=== PATIENT | female | born 1985 | race African-American/Black ===

== ENCOUNTER 2016-12-10 11:30 | Emergency (ER) | payer BC, OTHER ==
[~2016-12-10] VITALS: Ht 149.9 cm; Wt 95.7 kg
[~2016-12-10 11:30] MED LIST: ACET-704 PO; AMOX875T PO; BENZ100C PO; LIDO20SO PO
[2016-12-10 11:50] VITALS: BP 108/62
[2016-12-10] MEDS ORDERED: IV NORMAL SALINE 1000ML BAG 1,000 ML IV SCH (12:02)
[2016-12-10] MEDS ORDERED: KETOROLAC TROMETHAMINE 30 MG/ML SYRINGE. IV ONE (12:15)
[2016-12-10] MEDS ORDERED: ONDANSETRON PF 4 MG/2 ML VIAL. IV ONE (12:15)
--- NOTE | 2016-12-10 12:16 | PHYS DOC ---
Past Medical History Past Medical History: Asthma, Migraines, Other Additional Past Medical Histor: chronic back pain,'polycystic liver disease' Past Surgical History: Appendectomy, Tubal ligation, Other Additional Past Surgical Histo: CERVIX Alcohol Use: None Drug Use: None Adult General Chief Complaint Chief Complaint: FLANK PAIN HPI HPI Patient is a 31 year old female who presents with left flank pain for 4 days. The pain radiates to the left lower quadrant. She reports nausea without vomiting and loose stools. She has urinary frequency and urgency without dysuria or hematuria. She reports subjective fever. She denies history of kidney stones. Her PCP is Dr. Chance. Review of Systems Review of Systems Constitutional: Reports subjective fever. Eyes: Denies change in visual acuity, redness, or eye pain. [] HENT: Denies ear pain, nasal congestion or sore throat. [] Respiratory: Denies cough or shortness of breath. [] Cardiovascular: Denies chest pain, palpitations or edema. [] GI: Denies vomiting, bloody stools or diarrhea. Reports nausea and pain radiating to the left lower quadrant. : Denies dysuria, hematuria. Reports left flank pain, urinary frequency, and urinary urgency. Musculoskeletal: Denies back pain or joint pain. [] Integument: Denies rash or skin lesions. [] Neurologic: Denies headache, focal weakness or sensory changes. [] Endocrine: Denies polyuria or polydipsia. [] Psych: Denies anxiety or depression. [] All systems reviewed and negative unless otherwise stated in the HPI. Current Medications Current Medications Current Medications Medications (Trade) Dose Ordered Sig/Rich Start Time Stop Time Status Last Admin Dose Admin Ketorolac Tromethamine (Toradol) 30 mg 1X ONCE 12/10/16 12:15 12/10/16 12:16 DC 12/10/16 12:48 30 MG Ondansetron HCl (Zofran) 4 mg 1X ONCE 12/10/16 12:15 12/10/16 12:16 DC 12/10/16 12:48 4 MG Sodium Chloride (Iv Sodium Chloride 0.9% 1000ml Bag) 1,000 ml @ 1,000 mls/hr Q1H 12/10/16 12:02 12/10/16 13:01 DC 12/10/16 12:47 1,000 MLS/HR Allergies Allergies Allergies Coded Allergies Type Severity Reaction Last Updated Verified nitrofurantoin Allergy Intermediate Rash 01/07/15 Yes prednisone Allergy Intermediate Rash 01/07/15 Yes Physical Exam Physical Exam Constitutional: Well developed, well nourished, no acute distress, non-toxic appearance. [] HENT: Normocephalic, atraumatic, oropharynx moist. [] Eyes: PERRLA, EOMI, conjunctiva normal, no discharge. [] Neck: Normal range of motion, no tenderness, supple, no stridor. [] Cardiovascular: Heart rate regular rhythm, no murmur. [] Lungs & Thorax: Bilateral breath sounds clear to auscultation without wheezes, rales, or rhonchi. [] Abdomen: Bowel sounds normal, soft, no tenderness, no masses, no pulsatile masses. [] Skin: Warm, dry, no erythema, no rash. [] Back: No midline tenderness, no CVA tenderness. [] Extremities: No tenderness, ROM intact, no edema. Distal pulses equal bilaterally. [] Neurologic: Alert and oriented X 3, normal motor function, normal sensory function, no focal deficits noted. [] Psychologic: Affect normal, judgement normal, mood normal. [] Current Patient Data Vital Signs Vital Signs Date Time Temp Pulse Resp B/P Pulse Ox O2 Delivery O2 Flow Rate FiO2 12/10/16 11:50 98.4 71 16 108/62 100 Room Air 98.4 Lab Values Laboratory Tests Test 12/10/16 11:50 12/10/16 12:40 Urine Collection Type Unknown Urine Color Yellow Urine Clarity Clear Urine pH 7.5 Urine Specific [place] 1.020 Urine Protein Negativemg/dL (NEG-TRACE) Urine Glucose (UA) Negativemg/dL (NEG) Urine Ketones (Stick) Negativemg/dL (NEG) Urine Blood Small (NEG) Urine Nitrite Negative (NEG) Urine Bilirubin Negative (NEG) Urine Urobilinogen Dipstick 0.2mg/dL (0.2 mg/dL) Urine Leukocyte Esterase Negative (NEG) Urine RBC 3-5/HPF (0-2) Urine WBC 0/HPF (0-4) Urine Squamous Epithelial Cells Many/LPF Urine Bacteria Few/HPF (0-FEW) Urine Mucus Marked/LPF Urine Test Negative (NEG) White Blood Count 10.4x10^3/uL (4.0-11.0) Red Blood Count 4.63x10^6/uL (3.50-5.40) Hemoglobin 13.6g/dL (12.0-15.5) Hematocrit 40.7% (36.0-47.0) Mean Corpuscular Volume 88fL (79-100) Mean Corpuscular Hemoglobin 30pg (25-35) Mean Corpuscular Hemoglobin Concent 34g/dL (31-37) Red Cell Distribution Width 13.6% (11.5-14.5) Platelet Count 232x10^3/uL (140-400) Neutrophils (%) (Auto) 57% (31-73) Lymphocytes (%) (Auto) 33% (24-48) Monocytes (%) (Auto) 6% (0-9) Eosinophils (%) (Auto) 3% (0-3) Basophils (%) (Auto) 1% (0-3) Neutrophils # (Auto) 5.9x10^3uL (1.8-7.7) Lymphocytes # (Auto) 3.4x10^3/uL (1.0-4.8) Monocytes # (Auto) 0.6x10^3/uL (0.0-1.1) Eosinophils # (Auto) 0.3x10^3/uL (0.0-0.7) Basophils # (Auto) 0.1x10^3/uL (0.0-0.2) Sodium Level 140mmol/L (136-145) Potassium Level 3.9mmol/L (3.5-5.1) Chloride Level 105mmol/L (98-107) Carbon Dioxide Level 26mmol/L (21-32) Anion Gap 9 (6-14) Blood Urea Nitrogen 11mg/dL (7-20) Creatinine 0.8mg/dL (0.6-1.0) Estimated GFR (Cockcroft-Gault) 100.6 BUN/Creatinine Ratio 14 (6-20) Glucose Level 89mg/dL (70-99) Calcium Level 9.2mg/dL (8.5-10.1) Total Bilirubin 0.3mg/dL (0.2-1.0) Aspartate Amino Transferase (AST) 21U/L (15-37) Alanine Aminotransferase (ALT) 27U/L (14-59) Alkaline Phosphatase 59U/L (46-116) Total Protein 7.4g/dL (6.4-8.2) Albumin 3.3g/dL (3.4-5.0) L Albumin/Globulin Ratio 0.8 (1.0-1.7) L Laboratory Tests 12/10/16 12:40 Laboratory Tests 12/10/16 12:40 EKG EKG [] Radiology/Procedures Radiology/Procedures REASON: left flank pain PROCEDURE: ABDOMEN PELVIS WO CONTRAST Indication: Severe bilateral flank pain, greater on the left, symptoms for a few days. Findings: The lung bases are clear. Calcified granuloma is noted on the right. There is no pleural effusion. The heart is not enlarged. Solid organ evaluation is limited without IV contrast. Multiple low-density lesions within the liver are redemonstrated and similar to prior. Gallbladder is unremarkable. Spleen is not enlarged. Pancreas and adrenals are unremarkable. There is no obstructing or nonobstructing renal calculus. Lack of IV or oral contrast limits evaluation of bowel. Aorta is normal caliber. There is no small bowel obstruction or mural thickening. Colon is grossly unremarkable. Appendix appears to be surgically absent, postsurgical changes noted at the base of the cecum. Tubal ligation clips are noted. Calcified phleboliths are present. Bladder is decompressed. Bony structures are intact. Impression: 1. No acute abdominal findings. No obstructing or nonobstructing renal calculus. 2. Multiple low-density lesions again noted throughout the liver. These most likely represent cysts and are relatively unchanged. Course & Med Decision Making Course & Med Decision Making Pertinent Labs and Imaging studies reviewed. (See chart for details) Patient presents with left flank pain and urinary symptoms for 4 days. On exam, she does not have any tenderness over the CVA, flank, or abdomen. Urine is negative for infection or blood. There are no significant laboratory abnormalities. CT of the abdomen and pelvis does not show any stones or other acute abnormality. Her pain may be musculoskeletal in nature. She is discharged home with prescription for [place] and Robaxin. She is instructed to follow-up with her PCP if her pain continues. Return precautions were discussed. She verbalizes understanding and agrees with plan. Dragon Disclaimer Dragon Disclaimer This electronic medical record was generated, in whole or in part, using a voice recognition dictation system. Departure Departure Impression: Primary Impression: Flank pain Disposition: 01 HOME, SELF-CARE Condition: IMPROVED Referrals: NO PCP (PCP) Patient Instructions: Flank Pain, [id number] Additional Instructions: Your labs, urine, and CT scan did not show any concerning findings today. Please take the prescribed medications as directed. Do not drive or operate heavy machinery while taking these medications. Please follow-up with a primary care doctor within the next week. Return to the emergency department if you have any new or concerning symptoms. Scripts Methocarbamol (Robaxin)500 Mg [id number] Mg PO QID #20 TAB Prov:CINTHYA VARGAS 12/10/16 Hydrocodone/Apap 5-325 (Aiken 5-325 Tablet)1 Each Tablet1 Tab PO PRN Q6HRS PRN PAIN #20 TAB Prov:CINTHYA VARGAS 12/10/16 CINTHYA VARGAS Dec 10, 2016 12:16
[2016-12-10 13:00] LABS: BASO # 0.1 x10^3/uL (0.0-0.2); BASO % 1 % (0-3); EOS % 3 % (0-3); HEMATOCRIT 40.7 % (36.0-47.0); HEMOGLOBIN 13.6 g/dL (12.0-15.5); LYMPH # 3.4 x10^3/uL (1.0-4.8); LYMPH % 33 % (24-48); MEAN CORPUSCULAR HEMOGLOBIN 30 pg (25-35); MEAN CORPUSCULAR HGB CONC 34 g/dL (31-37); MEAN CORPUSCULAR VOLUME 88 fL (79-100); MONO % 6 % (0-9); NEUT % 57 % (31-73); PLATELET COUNT 232 x10^3/uL (140-400); RED BLOOD COUNT 4.63 x10^6/uL (3.50-5.40); RED CELL DISTRIBUTION WIDTH 13.6 % (11.5-14.5); WHITE BLOOD COUNT 10.4 x10^3/uL (4.0-11.0)
[2016-12-10 13:08] LABS: CALCIUM 9.2 mg/dL (8.5-10.1); CREATININE 0.8 mg/dL (0.6-1.0); GFR 100.6; POTASSIUM 3.9 mmol/L (3.5-5.1)
[2016-12-10 13:09] LABS: NEG OBC UR NEG; POS OBC UR POS
[2016-12-10 13:14] LABS: ALBUMIN 3.3 g/dL (3.4-5.0); ALBUMIN/GLOBULIN RATIO 0.8 (1.0-1.7); TOTAL BILIRUBIN 0.3 mg/dL (0.2-1.0); TOTAL PROTEIN 7.4 g/dL (6.4-8.2)
[2016-12-10 13:23] LABS: BILIRUBIN,URINE NEGATIVE (NEG); GLUCOSE,URINE NEGATIVE (NEG); NITRITE,URINE NEGATIVE (NEG); PH,URINE 7.5; PROTEIN,URINE NEGATIVE (NEG-TRACE); UROBILINOGEN,URINE 0.2 mg/dL (0.2 mg/dL)
[2016-12-10 13:24] LABS: BACTERIA,URINE FEW /HPF (0-FEW); SQUAMOUS EPITHELIAL CELL,UR MANY /LPF; WBC,URINE 0 /HPF (0-4)
--- NOTE | 2016-12-10 13:53 | RAD ---
Indication: Severe bilateral flank pain, greater on the left, symptoms for a few days. Technique: Axial images and coronal and sagittal reformatted images are provided. Comparison is from May 23, 2013. One or more of the following individualized dose reduction techniques were utilized for this examination: 1. Automated exposure control 2. Adjustment of the mA and/or kV according to patient size 3. Use of iterative reconstruction technique Findings: The lung bases are clear. Calcified granuloma is noted on the right. There is no pleural effusion. The heart is not enlarged. Solid organ evaluation is limited without IV contrast. Multiple low-density lesions within the liver are redemonstrated and similar to prior. Gallbladder is unremarkable. Spleen is not enlarged. Pancreas and adrenals are unremarkable. There is no obstructing or nonobstructing renal calculus. Lack of IV or oral contrast limits evaluation of bowel. Aorta is normal caliber. There is no small bowel obstruction or mural thickening. Colon is grossly unremarkable. Appendix appears to be surgically absent, postsurgical changes noted at the base of the cecum. Tubal ligation clips are noted. Calcified phleboliths are present. Bladder is decompressed. Bony structures are intact. Impression: 1. No acute abdominal findings. No obstructing or nonobstructing renal calculus. 2. Multiple low-density lesions again noted throughout the liver. These most likely represent cysts and are relatively unchanged.
[2016-12-10] MEDS ORDERED: HYDR-971 PO (14:18)
[2016-12-10] MEDS ORDERED: METH-37 PO (14:18)
== END 2016-12-10 14:37 | disposition home or self-care (01) ==
LOC: ER 11:30
DX: R10.9 Unspecified abdominal pain (principal); R50.9 Fever, unspecified; R35.0 Frequency of micturition; R39.15 Urgency of urination; J45.909 Unspecified asthma, uncomplicated; G43.909 Migraine, unspecified, not intractable, without status migrainosus; G89.29 Other chronic pain; Z90.49 Acquired absence of other specified parts of digestive tract; Z98.51 Tubal ligation status; Z88.8 Allergy status to other drugs, medicaments and biological substances
CPT/HCPCS: 36415; 74176; 80053; 81001; 81025; 85027; 96361; 96374; 96375; 99285; J1885; J2405; J7030

== ENCOUNTER 2017-05-07 16:07 | Emergency (ER) | payer BC, MEDICAID ==
[~2017-05-07] VITALS: Ht 149.9 cm; Wt 99.8 kg
[~2017-05-07 16:07] MED LIST changes: +HYDR-971 PO; +METH-37 PO
[2017-05-07 16:40] VITALS: BP 127/73
--- NOTE | 2017-05-07 16:52 | PHYS DOC ---
Past Medical History Past Medical History: Asthma, Migraines, Other Additional Past Medical Histor: chronic back pain,'polycystic liver disease' Past Surgical History: Appendectomy, Tubal ligation, Other Additional Past Surgical Histo: CERVIX Alcohol Use: None Drug Use: None Adult General Chief Complaint Chief Complaint: FOOT INJURY PAIN HPI HPI Patient is a 32 year old female with no significant medical history who presents with pain moderate in nature on the ball of her right foot that began today. Patient states the pain is worse on weight-bearing. Patient denies any history of gout. Denies any chance she is . Denies any injuries. Review of Systems Review of Systems Constitutional: Denies fever or chills [] Musculoskeletal: Right ball of the foot pain Integument: Denies rash or skin lesions [] Neurologic: Denies headache, focal weakness or sensory changes [] Allergies Allergies Allergies Coded Allergies Type Severity Reaction Last Updated Verified nitrofurantoin Allergy Intermediate Rash 01/07/15 Yes prednisone Allergy Intermediate Rash 01/07/15 Yes Physical Exam Physical Exam Constitutional: Well developed, well nourished, no acute distress, non-toxic appearance. [] Skin: Warm, dry, no erythema, no rash. [] Back: No tenderness, no CVA tenderness. [] Extremities: Right foot with no obvious deformity. Tenderness on palpation of the ball of the foot. No tenderness of the base of the fifth metatarsal or the navicular bone of the foot. +2 right pedal pulse. Cap refill less than 2 seconds the right toes. Sensation intact to the right foot. Neurologic: Alert and oriented X 3, normal motor function, normal sensory function, no focal deficits noted. [] Psychologic: Affect normal, judgement normal, mood normal. [] EKG EKG [] Radiology/Procedures Radiology/Procedures [] Course & Med Decision Making Course & Med Decision Making Pertinent Labs and Imaging studies reviewed. (See chart for details) Patient is in the ED with pain on the right foot specifically the ball of the foot that began today. No history of gout, no history of arthritis, no injuries. Right foot xrays interpreted by Dr. Hemphill were negative for any acute findings. D/c with Diclofenac and Voltaren cream. F/u with PCP or Ortho in one week. Ice and elevation encouraged. Dragon Disclaimer Dragon Disclaimer This electronic medical record was generated, in whole or in part, using a voice recognition dictation system. Departure Departure Impression: Primary Impression: Right foot pain Disposition: HOME, SELF-CARE Condition: STABLE Referrals: AMADOR PENALOZA MD (PCP) RAFITA RUGGIERO II, MD Follow-up in one week Patient Instructions: Musculoskeletal Pain Additional Instructions: You were seen for right foot pain. We had a recommend you follow-up with the orthopedic doctor provided or your own primary care doctor in one week if pain continues. Ice and elevate the extremity. Use the prescribed medicine as written Scripts Cyclobenzaprine Hcl (CYCLOBENZAPRINE HCL) 10 Mg Tablet 1 TAB PO TID, #30 TAB Prov: ED RIVERA APRN 05/07/17 Diclofenac Sodium (VOLTAREN) 100 Gm Gel..gram. 1 GM TP QID, #100 GM 2 Refills Prov: ED RIVERA APRN 05/07/17 Diclofenac Sodium (DICLOFENAC SODIUM) 50 Mg Tablet.dr 1 TAB PO BID, #60 TAB 1 Refill Prov: ED RIVERA APRN 05/07/17 ED RIVERA APRN May 07, 2017 16:52
[2017-05-07] MEDS ORDERED: DICL50TA4 PO (16:55)
[2017-05-07] MEDS ORDERED: CYCL10TA2 PO (16:55)
[2017-05-07] MEDS ORDERED: DICL100G18 TP (16:55)
--- NOTE | 2017-05-07 17:12 | RAD ---
Exam: Right foot radiograph 05/07/2017 Indication: Plantar surface and first MTP joint pain Comparison: None available Technique: 3 views of the right foot are provided. Findings: There is no acute fracture or dislocation. No joint space narrowing. No soft tissue swelling. No osseous erosion or soft tissue gas. Bone mineralization is within normal limits. Impression: No acute fracture or dislocation. Specifically, no significant abnormality along the plantar aspect of the foot and at the first metatarsophalangeal joint.
== END 2017-05-07 17:14 | disposition home or self-care (01) ==
LOC: ER 16:07
DX: M79.671 Pain in right foot (principal); G89.29 Other chronic pain; J45.909 Unspecified asthma, uncomplicated; G43.909 Migraine, unspecified, not intractable, without status migrainosus; Z98.51 Tubal ligation status; Z90.49 Acquired absence of other specified parts of digestive tract; Z88.8 Allergy status to other drugs, medicaments and biological substances
CPT/HCPCS: 73630; 99284

== ENCOUNTER → 2018-11-28 | Outpatient (CLI) | payer OTHER ==
[~2018-11-28] MED LIST changes: +CYCL10TA2 PO; +DICL100G18 TP; +DICL50TA4 PO; +HYDR-3164 PO; -HYDR-971 PO
[2018-11-28 12:13] LABS: BASO # 0.1 x10^3/uL (0.0-0.2); BASO % 1 % (0-3); EOS # 0.4 x10^3/uL (0.0-0.7); EOS % 5 % (0-3); HEMATOCRIT 40.1 % (36.0-47.0); HEMOGLOBIN 13.4 g/dL (12.0-15.5); LYMPH # 2.9 x10^3/uL (1.0-4.8); LYMPH % 32 % (24-48); MEAN CORPUSCULAR HEMOGLOBIN 29 pg (25-35); MEAN CORPUSCULAR HGB CONC 34 g/dL (31-37); MEAN CORPUSCULAR VOLUME 87 fL (79-100); MONO # 0.5 x10^3/uL (0.0-1.1); MONO % 5 % (0-9); NEUT # 5.2 x10^3uL (1.8-7.7); NEUT % 57 % (31-73); PLATELET COUNT 287 x10^3/uL (140-400); RED CELL DISTRIBUTION WIDTH 13.8 % (11.5-14.5); WHITE BLOOD COUNT 9.1 x10^3/uL (4.0-11.0)
[2018-11-28 12:35] LABS: ALBUMIN 3.2 g/dL (3.4-5.0); ALBUMIN/GLOBULIN RATIO 0.7 (1.0-1.7); CALCIUM 8.9 mg/dL (8.5-10.1); CREATININE 0.8 mg/dL (0.6-1.0); GFR 99.4; POTASSIUM 4.1 mmol/L (3.5-5.1); TOTAL BILIRUBIN 0.2 mg/dL (0.2-1.0); TOTAL PROTEIN 7.7 g/dL (6.4-8.2)
== END | disposition home or self-care (01) ==
LOC: LAB 11:36
PROVIDERS: ATTEND Psychiatry & Neurology Neurology
DX: G43.009 Migraine without aura, not intractable, without status migrainosus (principal); R25.1 Tremor, unspecified
CPT/HCPCS: 36415; 80053; 84443; 85025; 85651

== ENCOUNTER → 2020-01-09 | Outpatient (CLI) | payer OTHER ==
[~2020-01-09] MED LIST changes: +GADOTERATE 7.5 MMOL/15ML VIAL. IVP ONE
--- NOTE | 2020-01-09 12:09 | KCIC ---
MRI Brain with and without contrast History:Pseudotumor cerebri, migraine headaches since 2006 getting worse in frequency and intensity Technique: Multiplanar, multi sequential pre and postcontrast MR imaging was performed of the brain. Comparison: None Findings: There is some motion degradation even for repeated images. There is no evidence of recent infarct or cytotoxic edema. The ventricles, sulci, and cisterns are within normal limits in size and configuration. There is no significant midline shift, intraaxial mass effect, or focal abnormal extra-axial fluid collection. There is no significant signal abnormality including hemosiderin deposition of the brain parenchyma. There is no nodular parenchymal enhancement. There is preservation of the major intracranial flow-voids at the skull base. There are very slightly low lying cerebellar tonsils projecting up to about 0.3 to 0.4 cm inferior to foramen magnum on the right pituitary gland is within normal limits. There is focus of asymmetric enhancement along the right aspect of the infundibulum estimated about 2.6 cm AP by 0.5 cm transverse by 0.5 cm cc. On precontrast images, there is suggestion of some faint T1 shortening. Paranasal sinuses are overall aerated. The mastoid air cells are aerated. There is preserved marrow signal of the clivus. There is nonspecific mild prominence of adenoids. Impression: 1. There is focus of asymmetric enhancement along the right aspect of the infundibulum somewhat difficult to characterize due to motion and larger [id number] images, better characterized with thin section images through this region (pituitary) to include fat-suppressed and T2 imaging. Differential considerations would include etiologies such as lymphocytic hypophysitis, pituicytoma, craniopharyngioma, astrocytoma although again further assessment needed with thin section imaging. 2. There are slightly low lying cerebellar tonsils. Electronically signed by: Ambrose Chiang MD (01/09/2020 12:06 PM) [id number]
== END | disposition home or self-care (01) ==
LOC: KCIC MRI 09:03
PROVIDERS: ATTEND Psychiatry & Neurology Neurology
DX: G93.2 Benign intracranial hypertension (principal)
CPT/HCPCS: 70553; A9575